=== PATIENT | female | born 1955 | race Caucasian/White ===

== ENCOUNTER → 2016-08-27 | Outpatient (CLI) | payer BC, OTHER ==
[~2016-08-27] MED LIST: ALEVE220 MG PO; COLACE100 MG PO; CYCLOBENZAPRINE10 MG PO; ENDOCET 2.5-321 EACH PO; ENDOCET 5-3251 EACH PO; FLEXERIL PO; HYDROCODONE-AP1 EAC6 PO; IBUPROFEN 800800 M1 PO; IBUPROFEN 800800 MG PO; LISINOPRIL40 MG PO; NAPROSYN500 MG PO; NORCO 5-325 TA1 EACH PO; NORFLEX100 MG PO; PERCOCET 5-3251 EACH PO; TYLOPHEN500 MG PO; VALIUM5 MG PO; ZESTORETIC 20-1 EAC1
== END ==
LOC: RAD 14:03
DX: M47.816 Spondylosis without myelopathy or radiculopathy, lumbar region (principal); M48.06 Spinal stenosis, lumbar region; M54.5 Low back pain